=== PATIENT | male | born 1995 | race Caucasian/White ===

== ENCOUNTER → 2018-03-28 | Emergency (ER) | payer BC, SELFPAY | LOC: ER 00:32 | DX: Z53.21 Procedure and treatment not carried out due to patient leaving prior to being seen by health care provider (principal) ==

== ENCOUNTER 2018-12-05 06:46 | Emergency (ER) | payer SELFPAY ==
--- NOTE | 2018-12-05 07:47 | ER ---
Nurse's Notes [facility] Name: Cristian Castañeda Age: 23 yrs Sex: Male : 1995 Arrival Date: 12/05/2018 Time: 06:49 Bed 13 Private MD: Diagnosis: Influenza due to other identified influenza virus Presentation: 12/05 07:06 Presenting complaint: Headache, nausea, productive cough, sinus congestion, and fever x hb 3 days. TMAX 102. Daughter has flu. Transition of care: patient was not received from another setting of care. Onset of symptoms was December 02, 2018. Risk Assessment: Do you want to hurt yourself or someone else? Patient reports no desire to harm self or others. Initial Sepsis Screen: Does the patient meet any 2 criteria? No. Patient's initial sepsis screen is negative. Does the patient have a suspected source of infection? No. Patient's initial sepsis screen is negative. Care prior to arrival: None. 07:06 Method Of Arrival: Ambulatory hb 07:06 Acuity: ARAM 4 hb Triage Assessment: 07:41 General: Appears in no apparent distress. uncomfortable. Pain: Pain currently is 7 out ls4 of 10 on a pain scale. Historical: - Allergies: 07:08 PENICILLINS; hb - Home Meds: 07:08 None [Active]; hb - PMHx: 07:08 None; hb - PSHx: 07:08 None; hb - Immunization history:: Adult Immunizations up to date. - Social history:: Smoking status: Patient uses tobacco products, smokes one-half pack cigarettes per day. - Ebola Screening: : No symptoms or risks identified at this time. Screenin:08 Abuse screen: Denies threats or abuse. Denies injuries from another. Nutritional hb screening: No deficits noted. Tuberculosis screening: No symptoms or risk factors identified. Fall Risk None identified. Assessment: 07:42 General: Appears in no apparent distress. uncomfortable, Behavior is calm, cooperative. ls4 Neuro: No deficits noted. Cardiovascular: No deficits noted. Respiratory: No deficits noted. Derm: Skin is pink, warm \T\ dry. Vital Signs: 07:07 BP 127 / 86; Pulse 93; Resp 16; Temp 99(O); Pulse Ox 97% on R/A; Pain 7/10; hb ED Course: 06:49 Patient arrived in ED. es 07:07 Triage completed. hb 07:07 Mireya Garza, RN is Primary Nurse. ls4 07:07 Arm band placed on. hb 07:10 Patient has correct armband on for positive identification. Bed in low position. Call ls4 light in reach. Side rails up X 1. 07:13 Flu and/or RSV swab sent to lab. mh5 07:14 Flu Sent. mh5 07:15 No provider procedures requiring assistance completed. Patient did not have IV access ls4 during this emergency room visit. 07:34 Edwin Hernandez PA is PHCP. jr8 07:34 Jeffrey Joseph MD is Attending Physician. jr8 Administered Medications: 07:52 Drug: TORadol 60 mg Route: IM; Site: right deltoid; ls4 08:20 Follow up: Response: No adverse reaction; Marked relief of symptoms ls4 Outcome: 07:46 Discharge ordered by . jr8 08:15 Discharged to home ambulatory, with family. ls4 08:15 Condition: good ls4 08:15 Discharge instructions given to Instructed on discharge instructions, follow up and referral plans. medication usage, Demonstrated understanding of instructions, follow-up care, medications, Prescriptions given X 1. 08:17 Patient left the ED. ls4 Signatures: Jazmyne Mo Edwin Hernandez PA PA [facility] Shelbi Lynn, Ricarda Castañeda RN [facility] Mireya Garza, RN RN ls4
--- NOTE | 2018-12-05 07:47 | EDPHYS ---
Physician Documentation [facility] Name: Cristian Castañeda Age: 23 yrs Sex: Male : 1995 Arrival Date: 12/05/2018 Time: 06:49 Bed 13 Private MD: ED Physician Jeffrey Joseph HPI: 12/05 07:42 This 23 yrs old Male presents to ER via Ambulatory with complaints of Fever. jr8 07:42 The patient reports fever, not measured (subjective). Onset: The symptoms/episode jr8 began/occurred acutely, 4 day(s) ago. Modifying factors: there are no obvious modifying factors. Associated signs and symptoms: Pertinent positives: chills, cough, decreased appetite, runny nose, sinus congestion, sore throat. Severity of symptoms: At their worst the symptoms were moderate in the emergency department the symptoms are unchanged. The patient has not experienced similar symptoms in the past. The patient has not recently seen a physician. daughter recently diagnosed with influenza . Historical: - Allergies: 07:08 PENICILLINS; hb - Home Meds: 07:08 None [Active]; hb - PMHx: 07:08 None; hb - PSHx: 07:08 None; hb - Immunization history:: Adult Immunizations up to date. - Social history:: Smoking status: Patient uses tobacco products, smokes one-half pack cigarettes per day. - Ebola Screening: : No symptoms or risks identified at this time. ROS: 07:42 Eyes: Negative for injury, pain, redness, and discharge, Neck: Negative for injury, jr8 pain, and swelling, Cardiovascular: Negative for chest pain, palpitations, and edema, Abdomen/GI: Negative for abdominal pain, nausea, vomiting, diarrhea, and constipation, Back: Negative for injury and pain, MS/Extremity: Negative for injury and deformity, Skin: Negative for injury, rash, and discoloration. 07:42 Constitutional: Positive for body aches, chills, fever, malaise. 07:42 ENT: Positive for rhinorrhea, sinus congestion, sore throat. 07:42 Respiratory: Positive for cough, Negative for dyspnea on exertion, shortness of breath, sputum production, wheezing. 07:42 Neuro: Positive for headache, Negative for altered mental status, dizziness, gait disturbance, numbness, seizure activity, syncope. Exam: 07:44 Eyes: Pupils equal round and reactive to light, extra-ocular motions intact. Lids and jr8 lashes normal. Conjunctiva and sclera are non-icteric and not injected. Cornea within normal limits. Periorbital areas with no swelling, redness, or edema. ENT: Nares patent. No nasal discharge, no septal abnormalities noted. Tympanic membranes are normal and external auditory canals are clear. Oropharynx with redness. No swelling, or masses, exudates, or evidence of obstruction, uvula midline. No tonsillar exudates or enlargement. Mucous membranes moist. Neck: Trachea midline, no thyromegaly or masses palpated, and no cervical lymphadenopathy. Supple, full range of motion without nuchal rigidity, or vertebral point tenderness. No Meningismus. Cardiovascular: Regular rate and rhythm with a normal S1 and S2. No gallops, murmurs, or rubs. Normal PMI, no JVD. No pulse deficits. Respiratory: Lungs have equal breath sounds bilaterally, clear to auscultation and percussion. No rales, rhonchi or wheezes noted. No increased work of breathing, no retractions or nasal flaring. Abdomen/GI: Soft, non-tender, with normal bowel sounds. No distension or tympany. No guarding or rebound. No evidence of tenderness throughout. Back: No spinal tenderness. No costovertebral tenderness. Full range of motion. Skin: Warm, dry with normal turgor. Normal color with no rashes, no lesions, and no evidence of cellulitis. MS/ Extremity: Pulses equal, no cyanosis. Neurovascular intact. Full, normal range of motion. Neuro: Awake and alert, GCS 15, oriented to person, place, time, and situation. Cranial nerves II-XII grossly intact. Motor strength 5/5 in all extremities. Sensory grossly intact. Cerebellar exam normal. Normal gait. Vital Signs: 07:07 BP 127 / 86; Pulse 93; Resp 16; Temp 99(O); Pulse Ox 97% on R/A; Pain 7/10; hb MDM: 07:34 Patient medically screened. jr8 07:44 Data reviewed: vital signs, nurses notes, lab test result(s), Flu: positive and as a jr8 result, I will discharge patient. Data interpreted: Pulse oximetry: on room air is 97 %. Interpretation: normal. Counseling: I had a detailed discussion with the patient and/or guardian regarding: the historical points, exam findings, and any diagnostic results supporting the discharge/admit diagnosis, lab results, the need for outpatient follow up, a family practitioner, to return to the emergency department if symptoms worsen or persist or if there are any questions or concerns that arise at home. 12/05 07:08 Order name: Flu; Complete Time: 07:34 ls4 Administered Medications: 07:52 Drug: TORadol 60 mg Route: IM; Site: right deltoid; ls4 08:20 Follow up: Response: No adverse reaction; Marked relief of symptoms ls4 Disposition: 12/05/18 07:46 Discharged to Home. Impression: Influenza due to other identified influenza virus. - Condition is Stable. - Discharge Instructions: Influenza, Adult. - Prescriptions for Ibuprofen 800 mg Oral Tablet - take 1 tablet by ORAL route every 12 hours As needed take with food; 20 tablet. Guaifenesin AC 10- 100 mg/5 mL Oral Liquid - take 10 milliliter by ORAL route every 4 hours As needed; 240 milliliter. - Medication Reconciliation Form, Thank You Letter, Antibiotic Education, Prescription Opioid Use, Work release form form. - Follow up: Private Physician; When: 1 week; Reason: Recheck today's complaints, Continuance of care, Re-evaluation by your physician. - Problem is new. - Symptoms have improved. Addendum: 12/08/2018 19:30 Co-signature as Attending Physician, Jeffrey Joseph MD. g s Signatures: Dispatcher [employer] EDMS Edwin Hernandez PA PA jr8 Shelbi Lynn RN RN Jeffrey Joseph MD MD gs Stewart, Lisa, RN RN ls4 Corrections: (The following items were deleted from the chart) 12/05 07:57 07:46 12/05/2018 07:46 Discharged to Home. Impression: Influenza due to other ls4 identified influenza virus. Condition is Stable. Forms are Medication Reconciliation Form, Thank You Letter, Antibiotic Education, Prescription Opioid Use. Follow up: Private Physician; When: 1 week; Reason: Recheck today's complaints, Continuance of care, Re-evaluation by your physician. Problem is new. Symptoms have improved. jr8 08:17 07:57 12/05/2018 07:46 Discharged to Home. Impression: Influenza due to other ls4 identified influenza virus. Condition is Stable. Discharge Instructions: Influenza, Adult. Prescriptions for Ibuprofen 800 mg Oral Tablet - take 1 tablet by ORAL route every 12 hours As needed take with food; 20 tablet, Guaifenesin AC 10-100 mg/5 mL Oral Liquid - take 10 milliliter by ORAL route every 4 hours As needed; 240 milliliter. and Forms are Medication Reconciliation Form, Thank You Letter, Antibiotic Education, Prescription Opioid Use. Follow up: Private Physician; When: 1 week; Reason: Recheck today's complaints, Continuance of care, Re-evaluation by your physician. Problem is new. Symptoms have improved. ls4
[2018-12-05] MEDS ORDERED: KETOROLAC 30 MG/ML INJ ONE (08:00)
[2018-12-05 08:23] VITALS: BP 127/86; TEMP 99; O2SAT 97
== END 2018-12-05 08:17 | disposition home or self-care (01) ==
LOC: ER 06:46
DX: J10.1 Influenza due to other identified influenza virus with other respiratory manifestations (principal); F17.210 Nicotine dependence, cigarettes, uncomplicated; Z88.0 Allergy status to penicillin
CPT/HCPCS: 87804; 96372; 99283

== ENCOUNTER 2024-05-19 11:47 | Emergency (ER) | payer OTHER, SELFPAY ==
--- OUTSIDE RECORDS SUMMARY | 2024-05-19 11:50 | XMS REPORT | Continuity of Care Document ---
Author Name Unknown Address [address] [facility] [address] [id number] [facility] thconnect Address [address] [facility]. [address] [place] [address] Care Team Providers Care Director Of Social Media Marketing Name Role Phone Bahman Alonso Attending Clinician Unavailable JOHN Attending Clinician Unavailable Steven Ching Attending Clinician [phone] Zoila Iverson Attending Clinician [phone] ZOILA SOLIS Attending Clinician Unavailable JOHN Admitting Clinician Unavailable Payers Payer Name Policy Type Policy Number Effective Date Expirati on Date Source [place] [id number] 2021 00:00:00 Problems Condition Name Condition Details Condition Category Status Onset Date Resolution Date Last Treatment Date Treating Clinician Comments Source [id number] Seasonal allergic rhinitis, unspecifie d trigger Problem Active [facility] [id number] Chronic sinusitis, unspecifie d Problem Active [facility] Allergies, Adverse Reactions, Alerts Allergy Name Allergy Type Status Severity Reaction(s) Onset Date Inactive Date Treating Clinician Comments Source PENICILL IN DRUG INGREDI Active Unknown-Cmnt 2019-09 00:00: 00 [facility] Penicill in Propensi ty to adverse reaction s Active Unknown - See comments 2019-09 00:00: 00 [facility] PENICILL INS Allergy to substanc e Active [facility] [place] [facility] Social History Social Habit Start Date Stop Date Quantity Comments Source Exposure to SARS-CoV-2 (event) Not sure [facility] History of Tobacco Use Never Smoker [facility] Sex Assigned At [facility] Smoking Status Start Date Stop Date Source Unknown if ever smoked [facility] Heavy Tobacco Smoker [facility] Never Smoker [facility] Medications Ordered Medication Name Filled Medication Name Start Date Stop Date Current Medication? Ordering Clinician Indication Dosage Frequency Signature (SIG) Comments Components Source Doxycycline Hyclate 100 MG Doxycycline Hyclate 100 MG 2019-09 009 00:00: 00 07-12 00:00 :00 No 1{table t_with_ food} BID Doxycyclin e Hyclate 100 MG prednisone 20 mg tablet 3 tabs PO first day, 2 tabs PO second day, 1 tab PO qd until finished. prednisone 20 mg tablet 3 tabs PO first day, 2 tabs PO second day, 1 tab PO qd until finished. No prednisone 20 mg tablet 3 tabs PO first day, 2 tabs PO second day, 1 tab PO qd until finished. [facility] sulfamethox azole 800 mg-trimetho prim 160 mg tablet Take 1 tablet every 12 hours by oral route. sulfamethox azole 800 mg-trimetho prim 160 mg tablet Take 1 tablet every 12 hours by oral route. No 1 Q12H sulfametho xazole 800 mg-trimeth oprim 160 mg tablet Take 1 tablet every 12 hours by oral route. [facility] Vital Signs Vital Name Observation Time Observation Value Comments S ource BP Diastolic 2021-06-28 00:00:00 80 mm[Hg] [facility] Height 2021-06-28 00:00:00 71 [in_i] [facility] BP Systolic 2021-06-28 00:00:00 140 mm[Hg] [facility] Height 2021-05-10 00:00:00 71 [in_i] [facility] BP Diastolic 2021-04-07 00:00:00 86 mm[Hg] [facility] Height 2021-04-07 00:00:00 71 [in_i] [facility] BMI (Body Mass Index) 2021-04-07 00:00:00 31.7 kg/m2 Consuelo [facility] BP Systolic 2021-04-07 00:00:00 144 mm[Hg] Neyda mcgowan [facility] Body Weight 2021-04-07 00:00:00 3632 [oz_av] Bret hunt [facility] height 2020-07-02 14:40:00 71 [in_i] Commo n [facility] weight 2020-07-02 14:40:00 239.2 [lb_av] Co mmon [facility] temperature 2020-07-02 14:40:00 98.4 [degF] Com mon [facility] bmi 2020-07-02 14:40:00 33.36 kg/m2 Comm on [facility] oximetry 2020-07-02 14:40:00 98 % Commo n [facility] respiratory rate 2020-07-02 14:40:00 18 /min Common [facility] blood pressure systolic 2020-07-02 14:40:00 149 mm[Hg] Common [facility] blood pressure diastolic 2020-07-02 14:40:00 92 mm[Hg] [facility] Body temperature 2020-06-28 01:56:00 36.89 Latonya [facility] Respiratory rate 2020-06-28 01:56:00 20 /min [facility] Body weight 2020-06-28 01:56:00 107.956 kg [facility] Oxygen saturation in Arterial blood by Pulse oximetry 2020-06-28 01:56:00 98 /min [facility] Systolic blood pressure 2020-06-28 01:56:00 145 mm[Hg] [facility] Diastolic blood pressure 2020-06-28 01:56:00 97 mm[Hg] [facility] Heart rate 2020-06-28 01:56:00 88 /min [facility] Procedures Procedure Date / Time Performed Performing Clinician Source NOTICE OF PRIVACY PRACTICES 2020-06-28 01:52:17 Doctor Unassigned, [place] [facility] CONSENT/REFUSAL FOR DIAGNOSIS AND TREATMENT 2020-06-28 01:48:55 Doctor Unassigned, [place] [facility] Circumcision [facility] Plan of Care Planned Activity Planned Date Details Comments Source Diagnostic Test Pending 2021-06-28 00:00:00 rapid SARS CoV 2 Ag, QL IA, respiratory specimen [code = rapid SARS CoV 2 Ag, QL IA, respiratory specimen] [facility] Encounters Start Date/Time End Date/Time Encounter Type Admission Type Attending Clinicians Care Facility Care Department Encounter ID Source 2021-10-19 12:06:37 Outpatient Bahman Alonso [facility] [id number] [facility] 2021-10-19 11:53:47 Outpatient Bahman Alonso [facility] [id number] [facility] 2022-03-16 01:20:00 2022-03-16 01:20:00 Out[address] ERICKSON_R [facility] [id number] [place] [facility] 2021-07-30 03:31:00 2021-07-30 03:31:00 [address]_R [facility] [id number] [facility] 2021-06-28 02:01:00 2021-06-28 02:01:[address] [facility] [id number] [facility] 2021-06-28 00:00:00 2021-06-28 00:00:00 Steven Ching, DO: [address], [place] [address] , Ph. [facility] - [facility] - [facility], DR. CHING [id number] [facility] 2021-06-28 00:00:00 2021-06-28 00:00:[address] [facility] [id number] 2021-06-25 07:22:00 2021-06-25 07:22:[address] [facility]_R [facility] [id number] [place] [facility] 2021-06-16 06:38:00 2021-06-16 06:38:[address] [facility]_R [facility] [id number] [place] [facility] 2021-05-21 02:28:00 2021-05-21 02:28:[address] [facility]R [facility] [id number] [place] [facility] 2021-05-13 12:44:00 2021-05-13 12:44:[address] [facility]_R [facility] [id number] [place] [facility] 2021-05-10 03:58:00 2021-05-10 03:58:[address] [facility]_R [facility] [id number] [place] [facility] 2021-05-10 00:00:00 2021-05-10 00:00:[address] [facility] [id number] 2021-05-10 00:00:00 2021-05-10 00:00:00 Steven Ching, DO: [address], [place] [address] , Ph. [facility] - [facility], DR. CHING [id number] [place] [facility] 2021-04-16 02:31:00 2021-04-16 02:31:[address] [facility]_R [facility] [id number] [place] [facility] 2021-04-07 11:40:00 2021-04-07 11:40:[address] ERICKSON_R [facility] [id number] [place] [facility] 2021-04-07 00:00:00 2021-04-07 00:00:[address] [facility] [id number] 2021-04-07 00:00:00 2021-04-07 00:00:00 Steven Ching, DO: [address], [address], [place] [address] , Ph. [facility] - [facility] - [facility], DR. CHING [id number] [facility] 2020-07-02 00:00:00 2020-07-02 00:00:00 OFFICE VISIT NEW PT LEVEL 3 STLMLC STLMLC [id number] Common [facility] 2020-06-27 20:58:00 2020-06-27 22:40:00 Emergency Zoila Solis S [facility] [id number] [facility] 2020-06-27 20:58:00 2020-06-27 20:58:00 Emergency X ZOILA SOLIS [facility] ERT [id number] [facility]
--- NOTE | 2024-05-19 12:50 | RAD REPORT ---
EXAM DESCRIPTION: Adryan Single View05/19/2024 12:36 pm CLINICAL HISTORY: Chest pain COMPARISON: none FINDINGS: The lungs appear clear of acute infiltrate. The heart is normal size IMPRESSION: No acute abnormalities displayed
--- NOTE | 2024-05-19 12:54 | EDPHYS ---
Physician Documentation [facility] Name: Cristian Castañeda Age: 28 yrs Sex: Male : 1995 Arrival Date: 05/19/2024 Time: 11:47 Bed DX2 Private MD: ED Physician Trevor Lopez HPI: 05/19 12:22 This 28 yrs old Male presents to ER via Unassigned with complaints of Chest ec2 Wall Injury. 12:22 Patient arrives today for evaluation after dropping a heavy object on his chest. ec2 Patient reports some pain with inspiration, otherwise no significant medical problems. Denies any medication allergies. Has not taken any medications for symptoms.. Historical: - Allergies: 12:25 PENICILLINS; iw - Home Meds: 12:25 None [Active]; iw - PMHx: 12:25 None; iw - PSHx: 12:25 None; iw - Immunization history:: Adult Immunizations up to date. - Infectious Disease History:: Denies. - Social history:: Smoking status: . ROS: 12:22 Constitutional: as per hpi ec2 Exam: 12:22 Constitutional: GEN: NAD Head: atraumatic Eyes: EOMI Ears: External ears are ec2 normal. CV: regular rate LUNGS: no respiratory distress, no wheezes, no rales, no rhonchi. Presents present throughout all lung chamberlain ABD: non-distended SKIN: no evidence of rashes MSK: Reproducible chest wall TTP without deformities or crepitus or significant ecchymosis appreciated. Vital Signs: 12:24 BP 140 / 94; Pulse 89; Resp 16; Temp 97.5; Pulse Ox 97% on R/A; Weight 102.51 kg; iw Height 5 ft. 11 in. ; Pain 6/10; 12:24 Body Mass Index 31.52 (102.51 kg, 180.34 cm) iw 12:24 Pain Scale: Adult iw MDM: 11:55 Patient medically screened. ec2 12:22 Data reviewed: vital signs. ED course: Patient arrives today for evaluation of chest ec2 wall pain. Examination remarkable for findings as noted above. Will obtain radiograph. Evaluating for possible rib fracture, additionally considering contusion.. 12:53 ED course: Chest x-ray independently reviewed and interpreted by me, shows no ec2 pneumothorax, no rib fracture. Will discharge home. Return precautions given. Presentation consistent with contusion.. 05/19 11:51 Order name: CXR XRAY; Complete Time: 12:53 ec2 Administered Medications: 13:15 Not Given (Patient Refused): [id number] mg IM once ap3 13:15 Drug: Lidoderm Topical Patch 5 % (700 mg/patch) 1 patches Topical once; leave on for 12 ap3 hours; cover most painful area; may cut into smaller pieces Route: Topical; Site: anterior chest wall; 13:39 Follow up: Response: No adverse reaction; Pain is decreased ap3 13:15 Drug: HYDROcodone-acetaminophen PO 5 mg-325 mg 1 tabs PO once Route: PO; ap3 13:39 Follow up: Response: No adverse reaction; Pain is decreased ap3 Disposition Summary: 05/19/24 12:54 Discharge Ordered Notes: Location: Home ec2 Condition: Stable ec2 Diagnosis - Chest Wall Contusion ec2 Followup: ec2 - With: Private Physician - When: - Reason: Re-evaluation by your physician Discharge Instructions: - Discharge Summary Sheet ec2 - Chest Contusion, Adult ec2 Forms: - Medication Reconciliation Form ec2 - Antibiotic Education ec2 - Prescription Opioid Use ec2 - Patient Portal Instructions ec2 - Leadership Thank You Letter ec2 Prescriptions: - methocarbamol 500 mg Oral tablet - take 2 tablets ORAL route 4 times per day; 20 tablet; Refills: 0, Product ec2 Selection Permitted Signatures: Dispatcher [employer] Eri Garcia RN RN iw Safia Saldivar RN RN ap3 Trevor Lopez MD MD ec2
--- NOTE | 2024-05-19 12:54 | ER ---
Nurse's Notes [facility] Name: Cristian Castañeda Age: 28 yrs Sex: Male : 1995 Arrival Date: 05/19/2024 Time: 11:47 Bed DX2 Private MD: Diagnosis: Chest Wall Contusion Presentation: 05/19 12:24 Chief complaint: Patient states: a BBQ pit fell on his chest this morning, pain to iw midsternal chest area. Coronavirus screen: At this time, the client does not indicate any symptoms associated with coronavirus-19. Ebola Screen: No symptoms or risks identified at this time. Initial Sepsis Screen: Does the patient meet any 2 criteria? No. Patient's initial sepsis screen is negative. Does the patient have a suspected source of infection? No. Patient's initial sepsis screen is negative. Risk Assessment: Do you want to hurt yourself or someone else? Patient reports no desire to harm self or others. Onset of symptoms was May 19, 2024. 12:24 Method Of Arrival: Ambulatory iw 12:24 Acuity: ARAM 4 iw Historical: - Allergies: 12:25 PENICILLINS; iw - Home Meds: 12:25 None [Active]; iw - PMHx: 12:25 None; iw - PSHx: 12:25 None; iw - Immunization history:: Adult Immunizations up to date. - Infectious Disease History:: Denies. - Social history:: Smoking status: . Screenin:16 [facility] ED Fall Risk Assessment (Adult) History of falling in the last 3 months, ap3 including since admission No falls in past 3 months (0 pts) Confusion or Disorientation No (0 pts) Intoxicated or Sedated No (0 pts) Impaired Gait No (0 pts) Mobility Assist Device Used No (0 pt) Altered Elimination No (0 pt) Score/Fall Risk Level 0 - 2 = Low Risk Oriented to surroundings, Maintained a safe environment, Educated pt \T\ family on fall prevention, incl call for assistance when getting out of bed, Assessed \T\ reinforced patient's understanding of fall precautions, Provided non-skid footwear, Hourly rounding (assess needs \T\ fall precautionary measures) done, Used ambulatory aids as needed (educated on \T\ assisted with), Used gait belt as appropriate. Abuse screen: Denies threats or abuse. Nutritional screening: No deficits noted. Tuberculosis screening: No symptoms or risk factors identified. Assessment: 13:15 General: Appears in no apparent distress. Behavior is calm, cooperative, appropriate ap3 for age. Pain: Complains of pain in chest. Neuro: Level of Consciousness is awake, alert, obeys commands, Oriented to person, place, time, situation, Appropriate for age. Cardiovascular: Patient's skin is warm and dry. Respiratory: Airway is patent Respiratory effort is even, unlabored, Respiratory pattern is regular, symmetrical. Vital Signs: 12:24 BP 140 / 94; Pulse 89; Resp 16; Temp 97.5; Pulse Ox 97% on R/A; Weight 102.51 kg; iw Height 5 ft. 11 in. ; Pain 6/10; 12:24 Body Mass Index 31.52 (102.51 kg, 180.34 cm) iw 12:24 Pain Scale: Adult iw ED Course: 11:49 Patient arrived in ED. ec2 11:49 Trevor Lopez MD is Attending Physician. ec2 12:24 Triage completed. iw 12:25 Arm band placed on. iw 12:37 CXR XRAY In Process Unspecified. EDMS 12:51 Patient taken to [facility], ambulatory, Patient moved back from radiology. md2 13:16 Patient has correct armband on for positive identification. Adult w/ patient. ap3 13:16 No provider procedures requiring assistance completed. ap3 13:17 Provided Education on: medications prior to administration. ap3 13:39 Patient did not have IV access during this emergency room visit. ap3 Administered Medications: 13:15 Not Given (Patient Refused): [id number] mg IM once ap3 13:15 Drug: Lidoderm Topical Patch 5 % (700 mg/patch) 1 patches Topical once; leave on for 12 ap3 hours; cover most painful area; may cut into smaller pieces Route: Topical; Site: anterior chest wall; 13:39 Follow up: Response: No adverse reaction; Pain is decreased ap3 13:15 Drug: HYDROcodone-acetaminophen PO 5 mg-325 mg 1 tabs PO once Route: PO; ap3 13:39 Follow up: Response: No adverse reaction; Pain is decreased ap3 Medication: 13:16 VIS not applicable for this client. ap3 Outcome: 12:54 Discharge ordered by MD. ec2 13:39 Discharged to home ambulatory, ap3 13:39 Condition: good 13:39 Discharge instructions given to patient, Instructed on discharge instructions, follow up and referral plans. medication usage, Demonstrated understanding of instructions, follow-up care, medications, Prescriptions given X 1, 13:39 Patient left the ED. ap3 Signatures: Dispatcher [employer] Eri Garcia RN RN iw Safia Saldivar RN RN ap3 Maggie Owusu md2 Trevor Lopez MD MD ec2 Corrections: (The following items were deleted from the chart) 12:25 12:24 BP 140 / 94; Pulse 89bpm; Resp 16bpm; Pulse Ox 97% RA; Temp 97.5F; iw iw
[2024-05-19] MEDS ORDERED: LIDOCAINE 4% PATCH ONE (13:11)
[2024-05-19] MEDS ORDERED: HYDROCODONE/APAP 5/325 MG TAB ONE (13:11)
[2024-05-19 13:43] VITALS: BP 140/94; TEMP 97.5; O2SAT 97
== END 2024-05-19 13:39 | disposition home or self-care (01) ==
LOC: ER 11:47
DX: S20.219A Contusion of unspecified front wall of thorax, initial encounter (principal)
CPT/HCPCS: 71045; J2001; 99283